=== PATIENT | male | born 1975 | race Caucasian/White ===

== ENCOUNTER 2018-12-27 02:35 | Emergency (ER) | payer BC ==
[2018-12-27] MEDS ORDERED: Diphtheria,Pertussis(Acell),Tetanus Vaccine 0.5 ML Syringe ONE (03:24)
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
== END 2018-12-27 06:00 | disposition home or self-care (01) ==
LOC: MW.ED 02:35
DX: S01.01XA Laceration without foreign body of scalp, initial encounter (principal); V43.52XA Car driver injured in collision with other type car in traffic accident, initial encounter; W22.10XA Striking against or struck by unspecified automobile airbag, initial encounter; V43.92XA Unspecified car occupant injured in collision with other type car in traffic accident, initial encounter; Z23 Encounter for immunization
CPT/HCPCS: 70450; 70450-26; 71250; 71250-26; 72125; 72125-26; 74176; 74176-26; 90471; 99284-25